=== PATIENT | male | born 1980 | race Caucasian/White ===

== ENCOUNTER → 2020-11-29 | Outpatient (CLI) | payer OTHER ==
[~2020-11-29] MED LIST: AMLODIPINE BESYL5 MG PO; BACTRIM DS TAB1 EACH PO; ELIQUIS 2.5 MG2.5 MG PO; ENDOCET 5-3251 EACH PO; HYDROCODON-ACE1 EAC4 PO; IBU800 MG PO; KEFLEX CAP 500500 MG PO; LOVENOX30 MG/0.3 SQ; LOVENOX40 MG/0.4 SQ; METOPROLOL TART25 MG PO; ULTRAM50 MG PO
== END ==
LOC: EXRD 13:58
DX: N50.811 Right testicular pain (principal)
CPT/HCPCS: 76870

== ENCOUNTER 2021-01-04 16:46 | Inpatient (IN) | payer OTHER ==
[~2021-01-04] VITALS: Ht 180.3 cm; Wt 90.7 kg
[~2021-01-04 16:46] MED LIST changes: -AMLODIPINE BESYL5 MG PO; -ELIQUIS 2.5 MG2.5 MG PO; -ENDOCET 5-3251 EACH PO; -HYDROCODON-ACE1 EAC4 PO; -IBU800 MG PO; -LOVENOX30 MG/0.3 SQ; -LOVENOX40 MG/0.4 SQ; -METOPROLOL TART25 MG PO
[2021-01-04 18:27] LABS: HEMOGLOBIN 17.3 gm/dl (14.0-17.5); RED BLOOD COUNT 5.44 M/UL (4.20-5.50); WHITE BLOOD COUNT 7.6 K/UL (4.5-11.0)
[2021-01-04 18:46] LABS: BUN/CREATININE RATIO 20 (0-10)
[2021-01-04] MEDS ORDERED: AMLODIPINE BESYL5 MG PO (22:05)
[2021-01-04] MEDS ORDERED: METOPROLOL TART25 MG PO (22:05)
[2021-01-05 06:38] LABS: RED BLOOD COUNT 5.09 M/UL (4.20-5.50)
[2021-01-05 06:43] LABS: WHITE BLOOD COUNT 5.4 K/UL (4.5-11.0)
[2021-01-05 07:08] LABS: BUN/CREATININE RATIO 17 (0-10)
[2021-01-06 03:55] LABS: HEMOGLOBIN 13.2 gm/dl (14.0-17.5); RED BLOOD COUNT 4.22 M/UL (4.20-5.50); WHITE BLOOD COUNT 11.5 K/UL (4.5-11.0)
[2021-01-06 04:08] LABS: BUN/CREATININE RATIO 21 (0-10)
[2021-01-06] MEDS ORDERED: ELIQUIS 2.5 MG2.5 MG PO (10:51)
[2021-01-06] MEDS ORDERED: IBU800 MG PO (11:05)
[2021-01-06] MEDS ORDERED: LOVENOX30 MG/0.3 SQ (12:21)
[2021-01-06] MEDS ORDERED: HYDROCODON-ACE1 EAC4 PO (14:16)
[2021-01-07] MEDS ORDERED: LOVENOX40 MG/0.4 SQ (09:17)
[2021-01-07] MEDS ORDERED: ENDOCET 5-3251 EACH PO (09:17)
== END 2021-01-07 13:37 | disposition home or self-care (01) | DRG 481 ==
LOC: ER1 16:46 → CDU 18:51 → M/S 18:51
PROVIDERS: Nurse Practitioner; Orthopaedic Surgery; ADMIT Family Medicine
PROC: 0QS604Z Reposition Right Upper Femur with Internal Fixation Device, Open Approach (ICD-10-PCS; principal; 2021-01-05 19:00)
DX: S72.001A Fracture of unspecified part of neck of right femur, initial encounter for closed fracture (principal); L76.22 Postprocedural hemorrhage of skin and subcutaneous tissue following other procedure; I10 Essential (primary) hypertension; Z20.822 Contact with and (suspected) exposure to COVID-19; F17.210 Nicotine dependence, cigarettes, uncomplicated; B19.20 Unspecified viral hepatitis C without hepatic coma; W18.30XA Fall on same level, unspecified, initial encounter; F12.10 Cannabis abuse, uncomplicated; Z82.49 Family history of ischemic heart disease and other diseases of the circulatory system; Z71.6 Tobacco abuse counseling; Y83.8 Other surgical procedures as the cause of abnormal reaction of the patient, or of later complication, without mention of misadventure at the time of the procedure
CPT/HCPCS: 36415; 71045; 72170; 73502; 73552; 73564; 73700; 76000; 80048; 80053; 85025; 85610; 86850; 86900; 86901; 93005; 97116-GP-CQ; 97161; 97165; 99284; C1713; J0171; J0690; J1100; J1170; J1650; J2250; J2270; J2405; J2704; J2795; J3010; J7030; J7120; U0002